=== PATIENT | female | born 1975 | race Caucasian/White ===

== ENCOUNTER → 2016-08-20 | Outpatient (CLI) | payer BC ==
[~2016-08-20] MED LIST: ACET-1574 PO; ACET325T9 PO; CLON0.5T3 PO; PANT40GR PO; SCOP1PAT TD; SERT50TA PO; TOPI-24 PO
== END | disposition home or self-care (01) ==
LOC: CLNUT 15:35
PROVIDERS: ATTEND Nurse Practitioner Family
DX: F50.81 Binge eating disorder (principal)
CPT/HCPCS: 97802

== ENCOUNTER 2016-12-27 09:30 | Observation (INO) | payer BC ==
[~2016-12-27] VITALS: Ht 177.8 cm; Wt 100.2 kg
[~2016-12-27 09:30] MED LIST changes: -TOPI-24 PO; +TOPI25TA7 PO
[2016-12-27] MEDS ORDERED: hydrOXYzine HCL 10 MG TABLET PO PRN (10:15)
--- NOTE | 2016-12-27 10:16 | EKG ---
[address] [address] Test Date: 2016-12-27 Test Time: 10:13:52 Pat Name: CARLINE YA Department: Room: 111 A Gender: F Yarn Sorter: RYLAND : 1975 Requested By: KENNA HERNANDEZ Order Number: [id number] Reading MD: Gabriele Fernandes Measurements Intervals [place] Rate: 52 P: -28 OK: 130 QRS: 63 QRSD: 88 T: 51 QT: 464 QTc: 434 Interpretive Statements SINUS RHYTHM Electronically Signed On 12-31-2016 14:50:29 CDT by Gabriele Fernandes
[2016-12-27] MEDS: FAMOTIDINE 20 MG TABLET PO SCH ×2 (10:51→21:13)
[2016-12-27 11:00] VITALS: BP 117/75
[2016-12-27 11:06] LABS: BASO % 1 % (0-3); EOS # 0.1 x10^3/uL (0.0-0.7); EOS % 1 % (0-3); HEMATOCRIT 41.2 % (36.0-47.0); HEMOGLOBIN 13.7 g/dL (12.0-15.5); LYMPH # 2.2 x10^3/uL (1.0-4.8); LYMPH % 37 % (24-48); MEAN CORPUSCULAR HEMOGLOBIN 29 pg (25-35); MEAN CORPUSCULAR HGB CONC 33 g/dL (31-37); MEAN CORPUSCULAR VOLUME 87 fL (79-100); MONO # 0.4 x10^3/uL (0.0-1.1); MONO % 6 % (0-9); NEUT # 3.3 x10^3uL (1.8-7.7); NEUT % 55 % (31-73); PLATELET COUNT 208 x10^3/uL (140-400); RED BLOOD COUNT 4.75 x10^6/uL (3.50-5.40); RED CELL DISTRIBUTION WIDTH 12.7 % (11.5-14.5); WHITE BLOOD COUNT 6.1 x10^3/uL (4.0-11.0)
[2016-12-27 11:12] LABS: CALCIUM 8.2 mg/dL (8.5-10.1); CREATININE 1.2 mg/dL (0.6-1.0); GFR 49.3; POTASSIUM 3.3 mmol/L (3.5-5.1)
[2016-12-27 11:24] VITALS: BP 117/75
[2016-12-27 12:12] LABS: SEDIMENTATION RATE 2 (0-25)
[2016-12-27] MEDS ORDERED: APIX5TAB3 PO (12:54)
[2016-12-27] MEDS ORDERED: METO25TA4 PO (12:54)
[2016-12-27] MEDS ORDERED: HYDR25TA PO (12:54)
[2016-12-27] MEDS ORDERED: PRED-220 PO (12:54)
[2016-12-27] MEDS ORDERED: FLEC100T PO (12:54)
[2016-12-27] MEDS ORDERED: MIRT15TA3 PO (12:54)
[2016-12-27] MEDS: methylPREDNISolone SOD SUCC PF 40 MG/ML VIAL. IV SCH ×2 (14:44→21:14)
[2016-12-27 14:53] VITALS: BP 98/63
[2016-12-27] MEDS ORDERED: ACETAMINOPHEN 325 MG TABLET PO PRN (18:45)
[2016-12-27 19:30] VITALS: BP 118/77
[2016-12-27] MEDS: METOPROLOL TART IMMED RELEASE 25 MG TABLET PO SCH (21:00)
[2016-12-27] MEDS ORDERED: MIRTAZAPINE 15 MG TABLET PO SCH ×2 (21:00)
[2016-12-27] MEDS: APIXABAN 5 MG TABLET. PO SCH (21:13)
[2016-12-27 22:42] VITALS: BP 102/72
[2016-12-28] MEDS: methylPREDNISolone SOD SUCC PF 40 MG/ML VIAL. IV SCH (05:35)
[2016-12-28 05:40] VITALS: BP 104/69
[2016-12-28 06:54] LABS: BASO % 0 % (0-3); EOS % 0 % (0-3); HEMATOCRIT 43.5 % (36.0-47.0); HEMOGLOBIN 14.9 g/dL (12.0-15.5); LYMPH # 1.1 x10^3/uL (1.0-4.8); LYMPH % 12 % (24-48); MEAN CORPUSCULAR HEMOGLOBIN 29 pg (25-35); MEAN CORPUSCULAR HGB CONC 34 g/dL (31-37); MEAN CORPUSCULAR VOLUME 85 fL (79-100); MONO # 0.2 x10^3/uL (0.0-1.1); MONO % 3 % (0-9); NEUT # 7.3 x10^3uL (1.8-7.7); NEUT % 85 % (31-73); PLATELET COUNT 227 x10^3/uL (140-400); RED BLOOD COUNT 5.09 x10^6/uL (3.50-5.40); RED CELL DISTRIBUTION WIDTH 12.8 % (11.5-14.5); WHITE BLOOD COUNT 8.7 x10^3/uL (4.0-11.0)
[2016-12-28 07:19] LABS: ALBUMIN 3.5 g/dL (3.4-5.0); ALBUMIN/GLOBULIN RATIO 1.1 (1.0-1.7); CALCIUM 8.7 mg/dL (8.5-10.1); CREATININE 0.9 mg/dL (0.6-1.0); GFR 68.7; TOTAL BILIRUBIN 0.5 mg/dL (0.2-1.0); TOTAL PROTEIN 6.8 g/dL (6.4-8.2)
[2016-12-28] MEDS: APIXABAN 5 MG TABLET. PO SCH (08:22)
[2016-12-28] MEDS: FAMOTIDINE 20 MG TABLET PO SCH (08:24)
[2016-12-28] MEDS: METOPROLOL TART IMMED RELEASE 25 MG TABLET PO SCH (08:25)
[2016-12-28] MEDS ORDERED: predniSONE 10 MG TABLET PO SCH (09:00)
[2016-12-28 11:11] VITALS: BP 105/65
[2016-12-28] MEDS ORDERED: PRED5TAB PO (12:18)
[2016-12-29] MEDS ORDERED: methylPREDNISolone SOD SUCC PF 40 MG/ML VIAL. IV SCH (09:00)
== END 2016-12-28 12:34 | disposition home or self-care (01) ==
LOC: 1 SOUTH 09:30 → INTOOBSV 09:30
PROVIDERS: ADMIT Family Medicine; ATTEND Family Medicine
DX: T50.995A Adverse effect of other drugs, medicaments and biological substances, initial encounter (principal); L51.1 Stevens-Johnson syndrome; L29.8 Other pruritus; R60.0 Localized edema; Z86.73 Personal history of transient ischemic attack (TIA), and cerebral infarction without residual deficits; G43.909 Migraine, unspecified, not intractable, without status migrainosus
CPT/HCPCS: 36415; 80048; 80053; 84443; 85027; 85651; 93005; 96374; 96376; G0378; G0379; J2920